=== PATIENT | female | born 1995 | race Caucasian/White ===

== ENCOUNTER 2016-12-19 15:53 | Emergency (ER) | payer MEDICAID, MEDICARE ==
[~2016-12-19] VITALS: Ht 152.4 cm; Wt 61.0 kg
[2016-12-19] MEDS ORDERED: KETOROLAC 60MG/2ML VIAL IM STA (16:25)
[2016-12-19 17:13] LABS: BASOPHILS % 0.5 % (0.0-2.0); EOSINOPHILS % 1.2 % (0.0-5.0); HEMATOCRIT. 37.7 % (36.0-48.0); HEMOGLOBIN. 12.6 g/dL (12.0-16.0); LYMPHOCYTES % 29.8 % (20.0-50.0); MEAN CORPUSCULAR HEMOGLOBIN 26.5 pg (28.0-32.0); MEAN CORPUSCULAR VOLUME 79.7 fL (81.0-99.0); MEAN PLATELET VOLUME 8.1 fl (7.4-10.4); MONOCYTES % 6.8 % (2.0-8.0); NEUTROPHILS % 61.7 % (40.0-76.0); PLATELET 263 x1000/uL (130-400); RED BLOOD CELL COUNT 4.73 mill/uL (4.2-5.4); RED CELL DISTRIBUTION WIDTH 15.1 % (11.6-14.6)
[2016-12-19 17:16] LABS: CHLORIDE 109 mEq/L (98-107)
[2016-12-19 17:24] LABS: CARBON DIOXIDE 24 mEq/L (21-32)
[2016-12-19 17:53] VITALS: BP 110/61
== END 2016-12-19 18:00 | disposition home or self-care (01) ==
LOC: ER 16:18
DX: S13.4XXA Sprain of ligaments of cervical spine, initial encounter (principal); S09.90XA Unspecified injury of head, initial encounter; V89.2XXA Person injured in unspecified motor-vehicle accident, traffic, initial encounter; Y93.89 Activity, other specified; Y92.89 Other specified places as the place of occurrence of the external cause; Y99.8 Other external cause status
CPT/HCPCS: 36415; 70450; 72125; 80053; 85025; 96372; 99285; J1885; Z7610